=== PATIENT | male | born 1985 | race Caucasian/White ===

== ENCOUNTER 2021-04-30 19:31 | Emergency (ER) | payer OTHER ==
[~2021-04-30] VITALS: Ht 170.2 cm; Wt 82.2 kg
--- NOTE | 2021-04-30 19:33 | NUR ---
PRESSURE DRESSING APPLIED IN TRIAGE
[2021-04-30] MEDS ORDERED: LIDOCAINE-MPF 1%, 5ML ONE (20:03)
--- NOTE | 2021-04-30 20:20 | NUR ---
Pt up to restroom.
[2021-04-30] MEDS ORDERED: LIDOCAINE 1%, 10ML INFIL ONE (20:30)
--- NOTE | 2021-04-30 20:30 | NUR ---
PA at bedside to numb up laceration for irrigation.
--- NOTE | 2021-04-30 20:35 | NUR ---
Wound irrigated with sterile saline and irrigation adapter. Pt tolerated without pain and area around wound cleansed. Oozing blood noted and site loosely covered with 4x4 gauze dsg. PA notified of readiness for sutures.
--- NOTE | 2021-04-30 20:42 | NUR ---
PA at bedside for suture placement to hand lac.
[2021-04-30] MEDS ORDERED: BACITRACIN ZINC OINT 500U/GM, 0.9 GM ONE (20:43)
--- NOTE | 2021-04-30 20:56 | NUR ---
Wound dressed, awaiting d/c papers.
[2021-04-30 21:10] VITALS: BP 119/74
== END 2021-04-30 21:12 | disposition home or self-care (01) ==
LOC: ED 20:06
DX: S61.412A Laceration without foreign body of left hand, initial encounter (principal); W26.0XXA Contact with knife, initial encounter; Y93.89 Activity, other specified; Y92.009 Unspecified place in unspecified non-institutional (private) residence as the place of occurrence of the external cause; Y99.8 Other external cause status
CPT/HCPCS: 12001; 99282